=== PATIENT | female | born 1985 | race Caucasian/White ===

== ENCOUNTER 2024-10-29 14:24 | Emergency (ER) | payer SELFPAY ==
[~2024-10-29] VITALS: Ht 160 cm; Wt 55.9 kg
[2024-10-29 14:34] VITALS: BP 127/90; PULSE 70; RESP 22; TEMP 98.1; O2SAT 98
[2024-10-29] MEDS ORDERED: BUSP5TAB20 PO (14:34)
[2024-10-29] MEDS ORDERED: HYDR-4808 PO (15:34)
== END 2024-10-29 16:49 | disposition home or self-care (01) ==
LOC: EMS 14:24
DX: F41.9 Anxiety disorder, unspecified (principal); F43.10 Post-traumatic stress disorder, unspecified; Z88.5 Allergy status to narcotic agent; Z79.899 Other long term (current) drug therapy
CPT/HCPCS: 99283